=== PATIENT | male | born 1940 | race Caucasian/White ===

== ENCOUNTER 2016-03-21 12:39 | Emergency (ER) | payer MEDICARE, BC ==
[2016-03-21 12:56] VITALS: TEMP 96.6
--- NOTE | 2016-03-21 13:27 | ED.PDOC ---
History of Present Illness - General Chief Complaint: Cardiovascular Problem Stated Complaint: monitor for pacer/defib went off at home Time Seen by Provider: 03/21/16 13:06 Source: patient, RN notes reviewed, Vital Signs reviewed Exam Limitations: no limitations - History of Present Illness Initial Comments: Patient reports that when he got home from [employer] his defibrillator monitor was going off. HE was having no symptoms. 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 Patient continues to be asymptomatic. No chest pain, SOB, nausea or diaphoresis. He did have a mild dizzy spell yesterday but nothing today. Timing/Duration: 1/2 hour, resolved prior to arrival Severity: mild Location: other - No pain Activities at Onset: activity - at [employer] Prior Chest Pain/Cardiac Workup: heart attack - 1998 & 2008, stress test, other - CABG - 2008 and pacemaker/defib placement - 2 weeks ago Improving Factors: nothing Worsening Factors: nothing Nitro Today/Relief: no nitro taken today Aspirin Treatment Today: no aspirin today Associated Symptoms: denies symptoms Allergies/Adverse Reactions: Allergies NO KNOWN ALLERGY Allergy (Verified 01/03/15 15:46) Home Medications: Ambulatory Orders Aspirin [Aspirin Adult Low Dose] 81 mg PO DAILY 03/21/16 Furosemide 40 mg PO DAILY 03/21/16 Glipizide 10 mg PO DAILY 03/21/16 Losartan Potassium 100 mg PO DAILY 03/21/16 Metoprolol Tartrate 25 mg PO BID 03/21/16 Simvastatin 20 mg PO DAILY 03/21/16 Sitagliptin-Metformin HCl [Janumet] 1 tab PO BID 03/21/16 Spironolactone 25 mg PO BID 03/21/16 Review of Systems - Review of Systems Constitutional: States: no symptoms reported. Denies: diaphoresis, malaise, weakness EENTM: States: no symptoms reported Respiratory: States: no symptoms reported. Denies: cough, orthopnea, short of breath, stridor, wheezing Cardiology: States: no symptoms reported. Denies: chest pain, edema, palpitations, syncope Gastrointestinal/Abdominal: States: no symptoms reported. Denies: nausea Musculoskeletal: States: no symptoms reported Skin: States: no symptoms reported Neurological: States: see HPI. Denies: headache, numbness, paresthesia, seizure , tingling, tremors, weakness Endocrine: States: no symptoms reported Past Medical History (General) - Patient Medical History Hx Cardiac Disorders: Yes Hx Hypertension: Yes Hx Diabetes: Yes Hx Cancer: Yes - Bladder Surgical History: cholecystectomy, coronary bypass surgery, pacemaker - Vaccination History Hx Influenza Vaccination: No Hx Pneumococcal Vaccination: Yes - Social History Hx Tobacco Use: Yes - quit 40 years ago Hx Alcohol Use: Yes - occasional Hx Substance Use: No Hx Substance Use Treatment: No Hx Depression: No Family Medical History - Family History Mother Living Status: Hx Cardiac Disease: Yes Father Living Status: Hx Family;Other: COPD Physical Exam - Physical Exam General Appearance: Alert, Comfortable, No apparent distress, Well Developed, Well Groomed, Well Hydrated, Well Nourished Neck: non-tender, full range of motion, supple, normal inspection Respiratory: chest non-tender, lungs clear, normal breath sounds, no respiratory distress, no accessory muscle use Cardiovascular/Chest: regular rate, rhythm, no edema, no gallop, no JVD, no murmur Extremity: normal range of motion, non-tender, normal inspection Neurologic: no motor/sensory deficits, alert, normal mood/affect, oriented x 3 Skin Exam: normal color, warm/dry Progress - Results/Orders Results/Orders: Laboratory Tests 03/21/16 13:28 WBC 8.5 RBC 5.11 Hgb 14.9 Hct 44.3 MCV 86.5 MCH 29.1 MCHC 33.7 RDW 13.0 Plt Count 174 MPV 8.1 Absolute Neuts (auto) 6.50 Absolute Lymphs (auto) 1.10 Absolute Monos (auto) 0.70 Absolute Eos (auto) 0.20 Absolute Basos (auto) 0.00 Neutrophils % 76.5 Lymphocytes % 12.5 L Monocytes % 8.6 Eosinophils % 1.9 Basophils % 0.5 Sodium 136 Potassium 4.1 Chloride 103 Carbon Dioxide 25 Anion Gap 12.1 BUN 39 H Creatinine 2.12 H BUN/Creatinine Ratio 18.4 Random Glucose 274 H Serum Osmolality 291.1 Calcium 9.6 Total Bilirubin 1.0 AST 22 ALT 15 Alkaline Phosphatase 53 Creatine Kinase 93 CK-MB (CK-2) 3.5 CK-MB (CK-2) % Not Reportable Troponin I 0.04 Serum Total Protein 6.9 Albumin 4.2 Globulin 2.7 Albumin/Globulin Ratio 1.6 - EKG/XRAY/CT EKG: Jorje, Sinus, nonspecific ST T wave Chg Comments: 1st degree AV block XRAY: chest Xray Comments: Stable cardiomegaly, no acute changes per Radiology Departure - Departure Clinical Impression: Implantable defibrillator reprogramming/check Time of Disposition: 14:02 Disposition: Discharge to Home or Self Care Condition: Good Departure Forms: ED Discharge - Pt. Copy, Patient Portal Self Enrollment Instructions: DI for Automatic Cardioverter/Defibrillator Implantation Diet: resume usual diet Activity: increase activity as tolerated Home Medications: Ambulatory Orders Aspirin [Aspirin Adult Low Dose] 81 mg PO DAILY 03/21/16 Furosemide 40 mg PO DAILY 03/21/16 Glipizide 10 mg PO DAILY 03/21/16 Losartan Potassium 100 mg PO DAILY 03/21/16 Metoprolol Tartrate 25 mg PO BID 03/21/16 Simvastatin 20 mg PO DAILY 03/21/16 Sitagliptin-Metformin HCl [Janumet] 1 tab PO BID 03/21/16 Spironolactone 25 mg PO BID 03/21/16 Additional Instructions: Follow up with Ballast Regulator Operator as scheduled on , sooner if needed.
--- NOTE | 2016-03-21 13:56 | RAD ---
EXAM DESCRIPTION: XR CHEST 1 VIEW CLINICAL HISTORY: Irreg rhythm COMPARISON: February 05, 2009 FINDINGS: Again seen are postoperative changes in the mediastinum period a cardiac pacemaker is present, new from the prior exam. The heart is enlarged but stable. There is no airspace consolidation or pleural effusion. The bronchovascular markings are normal. There is no pneumothorax or acute fracture. IMPRESSION: Cardiac pacemaker, postoperative changes in the mediastinum and stable cardiomegaly, otherwise unremarkable exam Electronically signed by: Dallas Noel DO 03/21/2016 13:54
[2016-03-21 14:26] VITALS: BP 145/63; O2SAT 98
== END 2016-03-21 14:25 | disposition home or self-care (01) ==
LOC: ER 12:39
DX: Z45.02 Encounter for adjustment and management of automatic implantable cardiac defibrillator (principal); I25.2 Old myocardial infarction; Z95.1 Presence of aortocoronary bypass graft; I10 Essential (primary) hypertension; E11.9 Type 2 diabetes mellitus without complications; Z85.51 Personal history of malignant neoplasm of bladder; Z87.891 Personal history of nicotine dependence; Z79.82 Long term (current) use of aspirin; Z79.899 Other long term (current) drug therapy

== ENCOUNTER → 2016-04-15 | Outpatient (CLI) | payer MEDICARE, BC | END | disposition home or self-care (01) | LOC: GMAB 10:49 | PROVIDERS: ATTEND Family Medicine | DX: Z12.5 Encounter for screening for malignant neoplasm of prostate (principal); I10 Essential (primary) hypertension | CPT/HCPCS: 84443; G0103 ==

== ENCOUNTER → 2016-07-01 | Outpatient (CLI) | payer MEDICARE, BC | END | disposition home or self-care (01) | LOC: GMAB 17:20 | PROVIDERS: ATTEND Family Medicine | DX: L03.012 Cellulitis of left finger (principal) ==

== ENCOUNTER → 2016-11-04 | Outpatient (CLI) | payer MEDICARE, BC ==
--- NOTE | 2016-11-05 10:54 | CT ---
EXAM DESCRIPTION: Lumbar Spine CLINICAL HISTORY: 76 years, Male, LOW BACK PAIN COMPARISON: None TECHNIQUE: Lumbar CT with thin-section axial imaging with reconstructed MPR images reviewed as well. This exam was performed according to our departmental dose-optimization program, which includes automated exposure control, adjustment of the mA and/or kV according to patient size and/or use of iterative reconstruction technique. FINDINGS: CT of the lumbar spine demonstrates severe disc degenerative changes at L5-S1 with bone on bone appearance with vacuum phenomena with large anterior marginal osteophytes and smaller bony osteophytes and ridging at the posterior aspect of the disc space. There is mild vacuum phenomenon and disc space narrowing at L2-3 with normal alignment of the spine otherwise without significant posterior spurs noted. Soft tissue windows demonstrate a normal disc contour is in the lower thoracic spine and at the L1-2 level. Mild symmetric annular bulge with adequate canal at L2-3 is noted. Multifactoral L3-4 modest central stenosis with annular bulge and ligamentum flavum hypertrophy is present mild facet hypertrophy. At L4-5, mild multifactoral stenosis with symmetric annular bulge, facet degenerative arthropathy and ligamentum flavum hypertrophy is present. No significant stenosis is present at L5-S1 but posterior bony ridging is evident with modest facet hypertrophy. Moderate narrowing of each L5 neural foramen on a bony basis is evident. No vertebral collapse or destructive process is seen. The aorta is atherosclerotic without aneurysm. IMPRESSION: 1. Severe L5-S1 disc degenerative narrowing and bone on bone appearance with vacuum phenomena with large anterior and smaller posterior bony osteophytes evident without severe stenosis. 2. Multifactorial modest central canal stenosis at L3-4 and L4-5 secondary to broad-based annular bulge, ligamentum flavum hypertrophy, and facet arthropathy. The changes are symmetric. 3. Mild disc degeneration at L2-3 without significant compromise of the canal with normal appearance above this level. Electronically signed by: Bull Ryan MD 11/05/2016 10:52 AM CDT
== END | disposition home or self-care (01) ==
LOC: CT 13:53
PROVIDERS: ATTEND Family Medicine
DX: M54.5 Low back pain (principal)

== ENCOUNTER → 2016-11-30 | Outpatient (CLI) | payer MEDICARE, BC | END | disposition home or self-care (01) | LOC: GMAB 17:20 | PROVIDERS: ATTEND Family Medicine | DX: M54.16 Radiculopathy, lumbar region (principal); I50.40 Unspecified combined systolic (congestive) and diastolic (congestive) heart failure; E11.9 Type 2 diabetes mellitus without complications ==

== ENCOUNTER → 2016-12-08 | Outpatient (CLI) | payer MEDICARE, BC ==
--- NOTE | 2016-12-09 08:15 | CT ---
EXAM DESCRIPTION: Abdomen t/Pelvis w/o Contrast CLINICAL HISTORY: 76 years, 76 years, Male, Male, ABN WEIGHT LOSS, PERSONAL HX OF MALIGNANT NEOPLASM OF BLADDER COMPARISON: None. TECHNIQUE: CT of the abdomen and pelvis is performed according to our non contrast protocol This exam was performed according to our departmental dose-optimization program, which includes automated exposure control, adjustment of the mA and/or kV according to patient size and/or use of iterative reconstruction technique. FINDINGS: The lung bases are clear without effusions or infiltrates or masses. No free abdominal air is seen. The gallbladder is surgically absent without ductal dilation. The unenhanced liver is normal in appearance without focal mass. A small normal spleen without focal lesion is noted. The unenhanced pancreas and adrenal glands are normal. The unenhanced right kidney demonstrates no specific abnormality. A low-density approximate 12 mm lower pole left renal cortical nodule has attenuation values consistent with a benign cyst but is incompletely evaluated. If hematuria is present or there is concern for a possible renal mass consider renal sonography with attention to the lower pole left kidney. A probable parapelvic cyst in the mid left kidney is also noted. Aortic calcification without aneurysm is present. The bladder is normally distended and no distinct bladder mass on unenhanced imaging is evident. Mild prostatic hypertrophy consistent with the patient's age is noted. A fat-containing left inguinal hernia is noted. The anterior abdominal wall is otherwise unremarkable. A stool-filled colon is present with mild diverticulosis of the left colon without acute inflammation. No bowel obstruction or intra-abdominal mass seen. No right lower quadrant inflammatory changes or retroperitoneal or pelvic adenopathy is seen. No abdominal or pelvic ascites or fluid collections are noted. Bone on bone advanced degenerative disc disease at L5-S1 with vacuum phenomenon with milder changes at L2-3 are noted. No bony destructive changes are seen. A pattern of bony or abdominal metastatic disease is not apparent. IMPRESSION: 1. Probable left renal lower pole cortical cyst and mid pole parapelvic cyst or solid mass is thought unlikely. Correlation with renal sonography recommended. 2. Aortic and vascular calcification without aneurysm. 3. Surgical absence of the gallbladder and small fat-containing left inguinal hernia. 4. Left colonic diverticulosis. 5. Normally distended bladder without focal mass on noncontrast imaging. 6. Lower lumbar degenerative disc changes without evidence of bony metastatic disease. Electronically signed by: Bull Ryan MD 12/09/2016 8:14 AM CDT
== END ==
LOC: CT 09:30
PROVIDERS: ATTEND Family Medicine
DX: R63.4 Abnormal weight loss (principal); R63.0 Anorexia; K40.90 Unilateral inguinal hernia, without obstruction or gangrene, not specified as recurrent; Z85.51 Personal history of malignant neoplasm of bladder

== ENCOUNTER → 2016-12-13 | Outpatient (CLI) | payer MEDICARE, BC ==
--- NOTE | 2016-12-14 11:10 | US ---
EXAM DESCRIPTION: Renal CLINICAL HISTORY: CYST OF KIDNEY COMPARISON: CT abdomen pelvis December 08, 2016. TECHNIQUE: Sonographic images of the kidneys were acquired bilaterally and submitted for review. FINDINGS: Right kidney Size: Approximately 10.0 x 5.0 x 5.8 cm Echogenicity: Within normal limits for age. Parenchymal thickness and contour: Within normal limits. Pelvicalyceal dilatation: None Calculi: None Cysts: None Masses:None Left kidney Size: Approximately 10.5 x 5.6 x 5.1 cm Echogenicity: Within normal limits for age. Parenchymal thickness and contour: Within normal limits. Pelvicalyceal dilatation: None Calculi: None Cysts: Benign exophytic cyst off the inferior pole of the left kidney measuring up to 1.6 cm.. Intracortical cyst is also present measuring up to 1.9 cm. Masses:None Other findings IVC/aorta: Obscured by bowel gas. Urinary bladder: Not demonstrated. IMPRESSION: Benign cysts of the left kidney. Electronically signed by: Robert Hills MD 12/14/2016 11:09 AM BILLBOARD POSTER
== END ==
LOC: US 16:52
PROVIDERS: ATTEND Family Medicine
DX: N28.1 Cyst of kidney, acquired (principal)

== ENCOUNTER → 2017-05-05 | Outpatient (CLI) | payer MEDICARE, BC | LOC: GMAB 11:10 | PROVIDERS: ATTEND Family Medicine | DX: I10 Essential (primary) hypertension (principal); Z12.5 Encounter for screening for malignant neoplasm of prostate | CPT/HCPCS: 84443; G0103 ==

== ENCOUNTER 2017-07-14 02:23 | Emergency (ER) | payer MEDICARE, BC ==
[2017-07-14 02:43] VITALS: TEMP 97.5; O2SAT 96
[2017-07-14] MEDS ORDERED: predniSONE 20 MG TAB PO ONE (03:06)
[2017-07-14] MEDS ORDERED: SULFA/TRIMETH 800/160 (DS) TAB 1 EA TAB PO ONE (03:06)
[2017-07-14] MEDS ORDERED: CETIRIZINE HCL 10 MG TAB PO ONE (03:06)
--- NOTE | 2017-07-14 03:09 | ED.PDOC ---
History of Present Illness - General Chief Complaint: ENT Problem Stated Complaint: RIGHT SIDED THROAT SWELLING FACE Time Seen by Provider: 07/14/17 03:01 Source: patient Exam Limitations: no limitations - History of Present Illness Initial Comments: The patient is a 77-year-old male presenting to the emergency room secondary to right cheek and neck swelling along with some swelling to the central upper back after an insect bite or sting. He is uncertain what kind of insect. There is significant swelling and even mild hydropic change to the right jowl area. Mild itching. No shortness of breath. No wheezing. No evidence of any anaphylaxis. He has not had this reaction before. It does not appear to be an infectious cellulitis. Timing/Duration: 24 hours Severity: mild Improving Factors: nothing Worsening Factors: nothing Allergies/Adverse Reactions: Allergies NO KNOWN ALLERGY Allergy (Verified 07/14/17 02:38) Home Medications: Ambulatory Orders Clopidogrel Bisulfate [Plavix] 75 mg PO DAILY 07/14/17 Glipizide 10 mg PO 07/14/17 Metoprolol Succinate [Toprol Xl] 25 mg PO 07/14/17 Sacubitril-Valsartan [Entresto 49-51 mg] 07/14/17 Simvastatin 20 mg PO 07/14/17 Sitagliptin Phosphate [Januvia] 25 mg PO 07/14/17 Spironolactone [Aldactone] 25 mg PO 07/14/17 Sulfa/Trimeth 800/160 (Ds) Tab [Bactrim DS Tab] 1 ea PO DAILY #3 tab 07/14/17 predniSONE [Prednisone] 20 mg PO DAILY #3 tab 07/14/17 Review of Systems - Review of Systems Constitutional: States: no symptoms reported EENTM: States: no symptoms reported Respiratory: States: no symptoms reported Cardiology: States: no symptoms reported Gastrointestinal/Abdominal: States: no symptoms reported Genitourinary: States: no symptoms reported Musculoskeletal: States: no symptoms reported Skin: States: see HPI Neurological: States: no symptoms reported Endocrine: States: no symptoms reported All other Systems: No Change from Baseline Past Medical History (General) - Patient Medical History Hx Seizures: No Hx Stroke: No Hx Dementia: No Hx Asthma: No Hx of COPD: No Hx Cardiac Disorders: Yes Hx Congestive Heart Failure: No Hx Pacemaker: Yes Hx Hypertension: Yes Hx Thyroid Disease: No Hx Diabetes: Yes Hx Gastroesophageal Reflux: Yes Hx Renal Disease: No Hx Cancer: No Hx of HIV: No Hx Hepatitis C: No Hx MRSA: No Surgical History: angioplasty, cholecystectomy, coronary bypass surgery, pacemaker - Vaccination History Hx Tetanus, Diphtheria Vaccination: Yes Hx Influenza Vaccination: No Hx Pneumococcal Vaccination: No Immunizations Up to Date: No - Social History Hx Tobacco Use: No Hx Chewing Tobacco Use: No Hx Alcohol Use: No Hx Substance Use: No Hx Substance Use Treatment: No Hx Depression: No Feels Threatened In Home Enviroment: No Feels Threatened In a Relationship: No Hx Physical Abuse: No Hx Emotional Abuse: No Hx Suspected Abuse: No Family Medical History - Family History Mother Living Status: Hx Cardiac Disease: Yes Father Family History: No Known Living Status: Hx Family Asthma: No Hx Family;Other: COPD Physical Exam - Physical Exam General Appearance: Alert, Comfortable, No apparent distress Eye Exam: bilateral normal Ears, Nose, Throat: hearing grossly normal, normal ENT inspection Neck: non-tender, other - ild swelling in hydropic change to the right side of the neck just below the jawline. No evidence of abscess formation. Mild erythema. Minimal increased heat. 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 No evidence of anaphylaxis. The patient was given a dose of prednisone, Zyrtec and Bactrim. The patient will be placed on Bactrim daily for the next 3 days as well as low- dose prednisone for the next 3 days. He can take [id number] antihistamine such as Claritin or Zyrtec or Benadryl as needed. ER warnings were given. No definitive evidence of any infection at this time. - EKG/XRAY/CT CT Ordered: No CT Interpretation Call Back: No Departure - Departure Clinical Impression: Allergy, insect bite Disposition: Discharge to Home or Self Care Condition: Fair Departure Forms: ED Discharge - Pt. Copy, Patient Portal Self Enrollment Instructions: DI for General Allergic Reactions Diet: diabetic diet Activity: increase activity as tolerated Referrals: Salvador Haney MD [Primary Care Provider] - 1-2 Weeks Prescriptions: predniSONE [Prednisone] 20 mg PO DAILY #3 tab Sulfa/Trimeth 800/160 (Ds) Tab [Bactrim DS Tab] 1 ea PO DAILY #3 tab Home Medications: Ambulatory Orders Clopidogrel Bisulfate [Plavix] 75 mg PO DAILY 07/14/17 Glipizide 10 mg PO 07/14/17 Metoprolol Succinate [Toprol Xl] 25 mg PO 07/14/17 Sacubitril-Valsartan [Entresto 49-51 mg] 07/14/17 Simvastatin 20 mg PO 07/14/17 Sitagliptin Phosphate [Januvia] 25 mg PO 07/14/17 Spironolactone [Aldactone] 25 mg PO 07/14/17 Sulfa/Trimeth 800/160 (Ds) Tab [Bactrim DS Tab] 1 ea PO DAILY #3 tab 07/14/17 predniSONE [Prednisone] 20 mg PO DAILY #3 tab 07/14/17 Additional Instructions: the patient's a 77-year-old male presenting to the emergency room secondary to insect bite with localized allergic type reaction. No evidence of anaphylaxis. The patient was given a dose of prednisone, Zyrtec and Bactrim. The patient will be placed on Bactrim daily for the next 3 days as well as low- dose prednisone for the next 3 days. He can take [id number] antihistamine such as Claritin or Zyrtec or Benadryl as needed. ER warnings were given. No definitive evidence of any infection at this time.
[2017-07-14 03:30] VITALS: BP 145/77
== END 2017-07-14 03:36 | disposition home or self-care (01) ==
LOC: ER 02:23
DX: T63.481A Toxic effect of venom of other arthropod, accidental (unintentional), initial encounter (principal); I10 Essential (primary) hypertension; E11.9 Type 2 diabetes mellitus without complications; K21.9 Gastro-esophageal reflux disease without esophagitis; Z95.0 Presence of cardiac pacemaker; Z95.1 Presence of aortocoronary bypass graft; Z79.02 Long term (current) use of antithrombotics/antiplatelets

== ENCOUNTER → 2017-08-04 | Outpatient (CLI) | payer MEDICARE, BC ==
--- NOTE | 2017-08-04 17:13 | US ---
EXAM DESCRIPTION: Breast,Bilateral: Ultrasound CLINICAL HISTORY: 77 yearsMaleLUMP. About one month duration. "Dr. Haney stopped my medicine." COMPARISON: Digital 3-D tomosynthesis diagnostic bilateral mammography on this visit. TECHNIQUE: Transcutaneous scanning of the bilateral breasts utilizing humphries-scale and Doppler modes. Scanning performed by the instructor ground services and Dr. Burt. FINDINGS: Irregular hypoechoic tissue in the retroareolar left breast with no consistent posterior acoustic features. Not seen in the retroareolar right breast. No parenchymal edema or large calcifications. No distinct solid mass or cyst. No overlying skin changes. Consistent with gynecomastia. IMPRESSION: BI-RADS CATEGORY: 2 - BENIGN FINDINGS. FOLLOW UP: digital diagnostic breast imaging, based upon clinical findings. The FINDINGS and the FOLLOW-UP plan were reviewed in person with the patient after the examination. Written communication explaining the IMPRESSION and FOLLOW-UP will be mailed to the patient and referring care provider. Electronically signed by: Yohan Burt MD 08/04/2017 5:11 PM CDT
--- NOTE | 2017-08-05 16:23 | MAM ---
EXAM DESCRIPTION: Diagnostic Mammo,Bilateral: Digital Mammography CLINICAL HISTORY: 77 yearsMaleLUMP noticed one month ago. Minimally tender. Size of a dime. No nipple discharge. stopped medication after lump was discovered.. COMPARISON: No prior mammograms.. Targeted bilateral breast ultrasound following this examination. TECHNIQUE: Bilateral CC LM MLO projection full-field images, 3-D tomosynthesis digital mammographic technique. CAD not utilized. FINDINGS: The breast parenchymal density pattern is: Scattered areas of fibroglandular density. No skin thickening or nipple retraction multiple bilateral skin calcifications. Electronic monitor partially obscures the pectoral muscle above the left breast. Minimal thickening of the tissues around the left nipple. No nipple retraction. Bilateral axillary lymph nodes. Ultrasound: Irregular hypoechoic tissue in the retroareolar left breast with no consistent posterior acoustic features. Not seen in the retroareolar right breast. No parenchymal edema or large calcifications. No distinct solid mass or cyst. No overlying skin changes. Consistent with gynecomastia. IMPRESSION: BI-RADS CATEGORY: 2 - BENIGN FINDINGS. FOLLOW UP: digital diagnostic breast imaging when indicated by clinical findings. Please refer to bilateral targeted breast ultrasound and reports on this visit. The FINDINGS and the FOLLOW-UP plan were reviewed in person with the patient after the examination. Written communication explaining the IMPRESSION and FOLLOW-UP will be mailed to the patient and referring care provider. Electronically signed by: Yohan Burt MD 08/05/2017 4:22 PM CDT
== END ==
LOC: GMAB 13:00
PROVIDERS: ATTEND Family Medicine
DX: N63.42 Unspecified lump in left breast, subareolar (principal); R22.9 Localized swelling, mass and lump, unspecified

== ENCOUNTER → 2018-01-17 | Outpatient (CLI) | payer MEDICARE, BC ==
--- NOTE | 2018-01-17 14:42 | US ---
EXAM DESCRIPTION: Breast,Left: Ultrasound CLINICAL HISTORY: 77 [id number] tenderness in retroareolar left breast. More tender 2 weeks ago. About the same as 6 months ago. Enlarging on clinical history. COMPARISON: Bilateral breast ultrasound 08/04/2017. Bilateral digital diagnostic mammography 08/04/2017. TECHNIQUE: Transcutaneous scanning of the left breast utilizing humphries-scale and Doppler modes. Scanning performed by the lab assistant and Dr. Burt. FINDINGS: Irregular hypoechoic tissue in the retroareolar left breast with no real circumscribed margins and approximate dimensions 2.5 x 3.3 cm. Approximately 2.7 x 2.4 cm on the prior study. Wider than tall. No calcifications or fluid. Posterior acoustic shadowing features. Typical hypoechoic retroareolar tissues in the right breast not as prominent. IMPRESSION: BI-RADS CATEGORY 4: SUSPICIOUS. SUB-CATEGORY 4A - LOW SUSPICION FOR MALIGNANCY. Surgical consultation and tissue diagnosis should be considered. Consider digital diagnostic mammography if this will contribute to surgical consultation. The FINDINGS and FOLLOW-UP plan were reviewed in person with the patient following the examination. Written communication explaining the IMPRESSION and FOLLOW-UP will be mailed to the patient and referring care provider. Electronically signed by: Yohan Burt MD 01/17/2018 2:40 PM PATTERN GATER
== END ==
LOC: US 10:32
PROVIDERS: ATTEND Surgery
DX: N63.42 Unspecified lump in left breast, subareolar (principal)

== ENCOUNTER → 2018-01-26 | Outpatient (CLI) | payer MEDICARE, BC ==
--- NOTE | 2018-01-26 09:52 | OP ---
DATE OF PROCEDURE: 01/26/18 PREOPERATIVE DIAGNOSIS: 1. Subareolar left breast mass, increasing in size. POSTOPERATIVE DIAGNOSIS: 1. Subareolar left breast mass, increasing in size, pending pathology report. PROCEDURE: 1. Sonographically guided needle core biopsy, left breast subareolar mass. SURGEON: Adam Mittal MD. POST CLOSING SPECIALIST: None. ANESTHESIA: Local infiltration of 1% lidocaine. INDICATION: The patient is a 77-year-old male with a mildly tender mass in his left breast. It has been followed with serial ultrasounds and has been noted to increase in size. He was brought to the Ultrasound Suite today for sonographically guided needle core biopsy under local anesthesia. FINDINGS: Four good cores were taken with the needle identified within the mass. PROCEDURE: The patient was placed in the supine position. The left breast was inspected using the ultrasound device and the lesion was identified. The breast lateral to the ultrasound probe was prepped with Betadine and draped with towels. Local infiltration of anesthesia was obtained with 1% lidocaine. A stab wound was made with a 15 blade and the needle needle was introduced under ultrasound guidance to the mass and the four cores were taken. Hemostasis was obtained with pressure. A single suture was placed in the skin of 4-0 Prolene. Sterile pressure dressing was applied. The patient tolerated the procedure well. Estimated blood loss was nil. #[id number]
--- NOTE | 2018-01-26 14:41 | US ---
EXAM DESCRIPTION: Biopsy/Needle Guidance: Ultrasound. CLINICAL HISTORY: 77 years Male BREAST MASS COMPARISON: Diagnostic ultrasound of the left breast on 01/17/2018. Bilateral breast ultrasound 08/04/2017. TECHNIQUE: The procedure was performed by Dr. Mittal. Repeat ultrasound localized abnormal tissue at the retroareolar position of the left breast less than 2 cm from the nipple.. Sterile preparation. Sterile ultrasound guidance during needle passes. FINDINGS: Preliminary images show subareolar irregular hypoechoic tissue. Images during the procedure demonstrate the echogenic core biopsy needle transversing the lesion. IMPRESSION: Successful, ultrasound-guided core biopsy of left retroareolar mass/tissue. Adequate core samples were obtained. Pathology examination at remote facility, results pending. Electronically signed by: Yohan Burt MD 01/26/2018 2:40 PM [address] OF [address]
== END ==
LOC: US 09:00
PROVIDERS: ATTEND Surgery
DX: N63.42 Unspecified lump in left breast, subareolar (principal)

== ENCOUNTER → 2018-07-25 | Outpatient (CLI) | payer MEDICARE, BC ==
--- NOTE | 2018-07-26 10:17 | US ---
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 TECHNIQUE: Carotid Doppler ultrasound FINDINGS: Right Submitted images show no significant stenosis in the common carotid, internal carotid or external carotid arteries. Mild calcified plaque at the right carotid bifurcation. More prominent soft plaque is seen in the upper right CCA narrowing the upper CCA lumen to 3 mm diameter. A transverse image through the CCA and this area shows 63% luminal area narrowing by noncalcified plaque. The following flow velocities were obtained: Common carotid artery peak systolic flow velocity measures 114 centimeters per second. Internal carotid artery peak systolic flow velocity measures 45-62 centimeters per second. External carotid artery peak systolic flow velocity measures 67 centimeters per second. Flow in the right vertebral artery is antegrade. The right internal carotid to common carotid peak systolic flow velocity ratio equals 0.5 which is normal. Left Submitted images show normal caliber of the left common carotid, internal carotid and external carotid arteries with no significant stenosis. Calcified plaque at the left carotid bifurcation. Transverse image shows 21% area stenosis of the proximal left ICA. The following flow velocities were obtained: Common carotid artery peak systolic flow velocity measures 66 centimeters per second. Internal carotid artery peak systolic flow velocity measures 34-46 centimeters per second. External carotid artery peak systolic flow velocity measures 55 centimeters per second. Flow in the left vertebral artery is antegrade. The left internal carotid to common carotid peak systolic flow velocity ratio of 0.7 is normal. IMPRESSION: No significantly elevated flow velocities to indicate hemodynamically significant stenosis. Electronically signed by: Johny Leiva MD 07/26/2018 10:15 AM CDT
== END ==
LOC: RAD 11:52
PROVIDERS: ATTEND Family Medicine
DX: I65.23 Occlusion and stenosis of bilateral carotid arteries (principal)

== ENCOUNTER → 2019-03-21 | Outpatient (CLI) | payer MEDICARE, BC ==
--- NOTE | 2019-03-21 15:35 | RAD ---
Procedure: XR CHEST 2 VIEWS Exam Date: 03/21/2019 Ordering Provider: Salvador Haney Clinical Indication: FEVER WITH CHILLS Comparison: 03/21/2016 Findings: Residuals of thoracic surgery. Left subclavian AICD with lead stable in position. Borderline cardiomegaly. Aortic calcification. Opacities in the left upper lobe and left midlung suspicious for pneumonia. Right lung is clear. No pleural effusion. No pneumothorax. No acute osseous abnormality. Impression: 1. Opacities in the left upper lobe and left midlung suspicious for pneumonia. Follow-up on completion of a course of adequate medical therapy is recommended to document resolution. Electronically signed by: Az Cuevas MD 03/21/2019 3:34 PM [facility]
== END ==
LOC: LAB.O 14:47
PROVIDERS: ATTEND Family Medicine
DX: R91.8 Other nonspecific abnormal finding of lung field (principal); R50.9 Fever, unspecified; D50.9 Iron deficiency anemia, unspecified; R35.1 Nocturia; R19.7 Diarrhea, unspecified

== ENCOUNTER 2019-03-23 16:11 | Emergency (ER) | payer MEDICARE, BC ==
--- NOTE | 2019-03-23 16:55 | RAD ---
EXAM DESCRIPTION: Chest,2 Views CLINICAL HISTORY: 78 years Male recent william pna, cont symptoms COMPARISON: March 21, 2019. TECHNIQUE: Two view study of the chest was performed. FINDINGS: Cardiac silhouette is mildly enlarged. Central vessels are indistinct. Pacemaker leads identified. Sternal wires. Electrodes lateral left hemithorax. No infiltrate or effusion on right. Opacity medial left upper lobe not significantly changed. Opacity in region of left heart border unchanged. Small left pleural effusion versus pleural reaction. No pneumothorax. IMPRESSION: Enlarged heart with mild central congestion. Infiltrate and atelectatic change medial left apex as well as left lung base not significantly changed. Follow-up to resolution would be needed to exclude underlying lung parenchymal lesion. Electronically signed by: Nadia Hahn MD 03/23/2019 4:54 PM CLINICAL STATISTICAL PROGRAMMER
[2019-03-23 17:56] VITALS: TEMP 99
[2019-03-23] MEDS ORDERED: SODIUM CHLORIDE 0.9% 500ML 500 ML ONE (18:03)
[2019-03-23] MEDS: SODIUM CHLORIDE 0.9% 1000ML 500 ML IVS ONE (18:05)
--- NOTE | 2019-03-23 18:05 | ED.PDOC ---
History of Present Illness - General Chief Complaint: Respiratory Problem Stated Complaint: cough Time Seen by Provider: 03/23/19 16:26 Source: patient, family Exam Limitations: no limitations - History of Present Illness Initial Comments: The patient is a 78-year-old male presents emergency room secondary to persistence of symptoms from a left upper lobe pneumonia. He was seen in clinic [address] Haney and had blood work as well as a chest x-ray done at that time. He was appropriately started on Omnicef and a Z-Lj after receiving a dose of Rocephin. Patient is not feeling worse but he is not feeling better. He contacted Dr. Haney who sent him up here for further evaluation. The patient does not appear in any distress. He ambulates into the bed without difficulty. No hypoxia. No increased work of breathing. No current fever. He reports that he did have diarrhea but it stopped a day ago after a dose of Imodium. No chest pain. No palpitations. No syncope or near syncope. His symptoms are mainly a fever at night, cough and this feeling of mild shortness of breath. Timing/Duration: other - 4 days Severity: moderate Improving Factors: nothing Worsening Factors: nothing Associated Symptoms: cough, fever/chills, malaise, shortness of breath Allergies/Adverse Reactions: Allergies NO KNOWN ALLERGY Allergy (Verified 07/14/17 02:38) Home Medications: Ambulatory Orders Glipizide 10 mg PO DAILY 07/14/17 Metoprolol Succinate [Toprol Xl] 25 mg PO BID 07/14/17 Sacubitril-Valsartan [Entresto 49-51 mg] 1 tablet PO BID 07/14/17 Simvastatin 20 mg PO DAILY 07/14/17 Spironolactone [Aldactone] 12.5 mg PO DAILY 07/14/17 Apixaban [Eliquis] 5 mg PO DAILY 03/23/19 Insulin Degludec [Tresiba Flextouch] 14 units SUBCU DAILY 03/23/19 Sitagliptin Phosphate [Januvia] 100 mg PO DAILY 03/23/19 Review of Systems - Review of Systems Constitutional: States: fever, malaise EENTM: States: nose congestion Respiratory: States: cough, short of breath Cardiology: States: no symptoms reported Gastrointestinal/Abdominal: States: no symptoms reported Genitourinary: States: no symptoms reported Musculoskeletal: States: no symptoms reported Skin: States: no symptoms reported Neurological: States: no symptoms reported Endocrine: States: no symptoms reported All other Systems: No Change from Baseline Past Medical History (General) - Patient Medical History Hx Seizures: No Hx Stroke: Yes Hx Dementia: No Hx Asthma: No Hx of COPD: No Hx Cardiac Disorders: Yes Hx Congestive Heart Failure: No Hx Pacemaker: Yes Hx Hypertension: Yes Hx Thyroid Disease: No Hx Diabetes: Yes Hx Gastroesophageal Reflux: Yes Hx Renal Disease: No Hx Cancer: Yes Hx of HIV: No Hx Hepatitis C: No Hx MRSA: No Surgical History: cholecystectomy, coronary bypass surgery - Vaccination History Hx Tetanus, Diphtheria Vaccination: Yes Hx Influenza Vaccination: No Hx Pneumococcal Vaccination: Yes - Social History Hx Tobacco Use: Yes Hx Chewing Tobacco Use: No Hx Alcohol Use: No Hx Substance Use: No Hx Substance Use Treatment: No Hx Depression: No Hx Physical Abuse: No Hx Emotional Abuse: No Hx Suspected Abuse: No Family Medical History - Family History Mother Living Status: Hx Cardiac Disease: Yes Father Family History: No Known Living Status: Hx Family Asthma: No Hx Family;Other: COPD Physical Exam - Physical Exam General Appearance: Alert, Comfortable, No apparent distress Eye Exam: bilateral normal Ears, Nose, Throat: hearing grossly normal, normal pharynx, nasal congestion Neck: full range of motion, supple Respiratory: no respiratory distress, no accessory muscle use, rales - Mild primarily to the left upper lung field. Cardiovascular/Chest: normal peripheral pulses, regular rate, rhythm, no edema Peripheral Pulses: radial,right: 2+, radial,left: 2+ Gastrointestinal/Abdominal: non tender, soft Rectal Exam: deferred Extremity: normal range of motion, non-tender, no pedal edema, no calf tenderness, normal capillary refill Neurologic: access lead II-XII nml as tested, alert, normal mood/affect, oriented x 3 Skin Exam: normal color Comments: Vital Signs - 24 hr 03/23/19 03/23/19 03/23/19 16:15 17:00 17:30 Temperature 98.4 F 99.0 F Pulse Rate [ 87 85 61 left brachial] Respiratory 20 20 20 Rate Blood Pressure 140/80 128/77 133/83 [left brachial] O2 Sat by Pulse 97 96 98 Oximetry 03/23/19 16:27 EKG Assessment ONCE 03/23/19 16:30 EKG STAT 03/23/19 17:01 BLOOD CULTURE Stat 03/23/19 17:17 SPUTUM CULTURE Stat 03/23/19 18:02 Sodium Chloride 0.9% 1000ML [Ns 1000 ml] 500 ml IVS ONCE Laboratory Results - last 24 hr 03/23/19 03/23/19 03/23/19 17:01 17:01 17:01 WBC 8.2 RBC 4.79 Hgb 14.5 Hct 42.3 MCV 88.2 MCH 30.1 MCHC 34.2 RDW 13.2 Plt Count 191 MPV 8.3 Absolute Neuts (auto) 6.80 Absolute Lymphs (auto) 0.30 L Absolute Monos (auto) 0.70 Absolute Eos (auto) 0.40 Absolute Basos (auto) 0.00 Neutrophils % 82.5 H Lymphocytes % 4.2 L Monocytes % 8.5 Eosinophils % 4.5 Basophils % 0.3 Sodium 130 L Potassium 3.7 Chloride 97 L Carbon Dioxide 22 Anion Gap 14.7 BUN 45 H Creatinine 2.10 H BUN/Creatinine Ratio 21.4 H Random Glucose 235 H D Serum Osmolality 279.9 Lactic Acid 1.6 Calcium 8.1 L Total Bilirubin 1.1 H D AST 14 ALT 13 Alkaline Phosphatase 55 Creatine Kinase 60 CK-MB (CK-2) 3.2 CK-MB (CK-2) % Not Reportable Troponin I 0.02 B-Natriuretic Peptide 400.0 H* Serum Total Protein 6.3 L Albumin 3.1 L Globulin 3.2 Albumin/Globulin Ratio 1.0 L Urine Color Urine Appearance Urine pH Ur Specific [place] Urine Protein Urine Glucose (UA) Urine Ketones Urine Blood Urine Nitrite Urine Bilirubin Urine Urobilinogen Ur Leukocyte Esterase Urine RBC Urine WBC Ur Epithelial Cells Amorphous Sediment Urine Bacteria 03/23/19 17:28 WBC RBC Hgb Hct MCV MCH MCHC RDW Plt Count MPV Absolute Neuts (auto) Absolute Lymphs (auto) Absolute Monos (auto) Absolute Eos (auto) Absolute Basos (auto) Neutrophils % Lymphocytes % Monocytes % Eosinophils % Basophils % Sodium Potassium Chloride Carbon Dioxide Anion Gap BUN Creatinine BUN/Creatinine Ratio Random Glucose Serum Osmolality Lactic Acid Calcium Total Bilirubin AST ALT Alkaline Phosphatase Creatine Kinase CK-MB (CK-2) CK-MB (CK-2) % Troponin I B-Natriuretic Peptide Serum Total Protein Albumin Globulin Albumin/Globulin Ratio Urine Color Yellow Urine Appearance Clear Urine pH 5.5 Ur Specific [place] 1.020 Urine Protein 30 Urine Glucose (UA) Negative Urine Ketones Negative Urine Blood Trace-lysed H Urine Nitrite Negative Urine Bilirubin Negative Urine Urobilinogen 0.2 Ur Leukocyte Esterase Negative Urine RBC 0 Urine WBC 1-3 Ur Epithelial Cells 0 Amorphous Sediment Trace Urine Bacteria Rare Chest x-ray shows what appears to be a stable left upper lobe infiltrate with a small pericardial infiltrate on the left. EKG shows what I believe is atrial fibrillation that is well rate controlled at 84 bpm. There is a RSR prime and anterior lateral leads. No definitive ST segment or T wave changes indicative of acute ischemia when compared to previous EKGs. There is obvious conduction delay. Progress - Progress Progress: 03/23/19 18:09 The patient is a 78-year-old male presenting with a left upper lobe pneumonia that was found 2 days ago. X-ray, blood work and clinical appearance seem to indicate that the antibiotics are doing what they should be doing. He is not hypoxic and vital signs are stable. White blood cell count has actually improved from 11,000 down to 8000 which is approximately his baseline. No evidence of any respiratory distress or sepsis. The patient will continue his home azithromycin and Omnicef. He can continue to take Tylenol at night for fever control as needed. We did perform a blood and sputum culture here tonight. I do want him to follow back up with Dr. Haney on Tuesday for repeat evaluation. Obviously if the patient is worsening in any significant way in the near future then he needs to return here for further evaluation and possible inpatient management if necessary. At this point in time however there is nothing I can offer him from the inpatient standpoint that would improve his care. He did receive a small 500 cc bolus of normal saline for what is likely mild dehydration related to the diarrhea from a few days ago. This will also help with the mild hyponatremia. He is no longer having diarrhea at this time. He needs to maintain a bland diet. He needs to do deep breathing exercises and make himself cough. Additionally he does need to get up and move around to prevent deconditioning. ER warnings are given for any worsening. [email or web address] [email or web address] Departure - Departure Clinical Impression: Hyponatremia, Dehydration, mild Pneumonia Qualifiers: Pneumonia type: due to unspecified organism Laterality: right Lung location: upper lobe of lung Qualified Code(s): J18.9 - Pneumonia, unspecified organism Disposition: Discharge to Home or Self Care Condition: Fair Departure Forms: ED Discharge - Pt. Copy, Patient Portal Self Enrollment Instructions: DI for Pneumonia -- Adult Diet: diabetic diet Activity: increase activity as tolerated Referrals: KANCHAN SANDERSON MD [Primary Care Provider] - 1-5 Days Home Medications: Ambulatory Orders Glipizide 10 mg PO DAILY 07/14/17 Metoprolol Succinate [Toprol Xl] 25 mg PO BID 07/14/17 Sacubitril-Valsartan [Entresto 49-51 mg] 1 tablet PO BID 07/14/17 Simvastatin 20 mg PO DAILY 07/14/17 Spironolactone [Aldactone] 12.5 mg PO DAILY 07/14/17 Apixaban [Eliquis] 5 mg PO DAILY 03/23/19 Insulin Degludec [Tresiba Flextouch] 14 units SUBCU DAILY 03/23/19 Sitagliptin Phosphate [Januvia] 100 mg PO DAILY 03/23/19 Additional Instructions: The patient is a 78-year-old male presenting with a left upper lobe pneumonia that was found 2 days ago. X-ray, blood work and clinical appearance seem to indicate that the antibiotics are doing what they should be doing. He is not hypoxic and vital signs are stable. White blood cell count has actually improved from 11,000 down to 8000 which is approximately his baseline. No evidence of any respiratory distress or sepsis. The patient will continue his home azithromycin and Omnicef. He can continue to take Tylenol at night for fever control as needed. We did perform a blood and sputum culture here tonight. I do want him to follow back up with Dr. Haney on Tuesday for repeat evaluation. Obviously if the patient is worsening in any significant way in the near future then he needs to return here for further evaluation and possible inpatient management if necessary. At this point in time however there is nothing I can offer him from the inpatient standpoint that would improve his care. He did receive a small 500 cc bolus of normal saline for what is likely mild dehydration related to the diarrhea from a few days ago. This will also help with the mild hyponatremia. He is no longer having diarrhea at this time. He needs to maintain a bland diet. He needs to do deep breathing exercises and make himself cough. Additionally he does need to get up and move around to prevent deconditioning. ER warnings are given for any worsening.
[2019-03-23] MEDS: ACETAMINOPHEN 325 MG TAB PO ONE (18:06)
[2019-03-23 19:08] VITALS: BP 131/79; O2SAT 97
== END 2019-03-23 18:55 | disposition home or self-care (01) ==
LOC: ER 16:11
DX: J18.9 Pneumonia, unspecified organism (principal); E86.0 Dehydration; E87.1 Hypo-osmolality and hyponatremia; I51.9 Heart disease, unspecified; I10 Essential (primary) hypertension; E11.9 Type 2 diabetes mellitus without complications; K21.9 Gastro-esophageal reflux disease without esophagitis; Z85.9 Personal history of malignant neoplasm, unspecified; Z95.0 Presence of cardiac pacemaker; Z86.73 Personal history of transient ischemic attack (TIA), and cerebral infarction without residual deficits; Z79.01 Long term (current) use of anticoagulants; Z79.899 Other long term (current) drug therapy; Z95.1 Presence of aortocoronary bypass graft; Z87.891 Personal history of nicotine dependence
CPT/HCPCS: 36415; 71046; 80053; 81001; 82550; 82553; 83605; 83880; 84484; 85025; 87040; 87502; 93005; J7040

== ENCOUNTER → 2019-03-26 | Outpatient (CLI) | payer MEDICARE, BC ==
--- NOTE | 2019-03-27 19:27 | US ---
EXAM DESCRIPTION: Carotid Duplex: ULTRASOUND. CLINICAL HISTORY: 78 years Male HISTORY OF TIA COMPARISON: Comparison same study July 2018. TECHNIQUE: Transcutaneous scanning utilizing humphries-scale and Doppler modes to evaluate the bilateral carotid systems and vertebral arteries. Percentage of diameter of stenosis or no stenosis recorded will be based upon NASCET criteria. FINDINGS: Peak systolic/end diastolic (CM-Sec) CCA : Right proximal 42/9 distal 219/27 Left proximal 70/10. Distal 88/13. ICA: Right proximal 45/16, mid 41/11. Left proximal 57/16, Distal 46/16. Vertebral Right 31/11 Left 39/13. ECA (PS Only) Right 63 left 58. ICA/CCA peak systolic ratio: Right 1.1 Left 0.6 ICA/CCA end diastolic ratio: Right 1.7 Left 1.2 Vertebral arteries: antegrade flow. Comments Comments: Atherosclerotic calcifications bilateral common carotid bifurcations and proximal ICAs. Color turbulent flow distal right CCA bulb. Spectral broadening in the right mid and distal ICAs. 71% area stenosis and 72% diameter stenosis right mid CCA. Spectral broadening in the distal left ICA. Area diameter stenosis in the left CCA and left ICA 25% or less. IMPRESSION: 1. Doppler and grayscale ultrasound evaluation of the bilateral carotid systems and vertebral arteries shows 71% area stenosis and 72% diameter stenosis in the right mid CCA. Consider carotid-vertebral CTA or MRA, or conventional contrast angiography correlation and neurovascular consultation. 2. Significant amount of plaque seen in the carotid arteries bilaterally. Bilateral vertebral arteries showed antegrade-cephalad flow. Electronically signed by: Yohan Burt MD 03/27/2019 7:26 PM ELECTRO MECHANICAL TECHNOLOGIST
== END ==
LOC: US 11:42
PROVIDERS: ATTEND Family Medicine
DX: Z86.73 Personal history of transient ischemic attack (TIA), and cerebral infarction without residual deficits (principal); I65.23 Occlusion and stenosis of bilateral carotid arteries

== ENCOUNTER → 2019-07-17 | Outpatient (CLI) | payer MEDICARE, BC | LOC: GMAE 11:15 | PROVIDERS: ATTEND Family Medicine | DX: I10 Essential (primary) hypertension (principal); E11.9 Type 2 diabetes mellitus without complications; E78.2 Mixed hyperlipidemia ==

== ENCOUNTER 2019-11-04 13:06 | Emergency (ER) | payer MEDICARE, BC ==
--- NOTE | 2019-11-04 13:32 | ED.PDOC ---
History of Present Illness - General Chief Complaint: Skin/Abrasion/Tear Time Seen by Provider: 11/04/19 13:07 Source: patient, RN notes reviewed, Vital Signs reviewed Exam Limitations: no limitations - History of Present Illness Initial Comments: Pleasant 79 yo male with CKD, DM, CAD comes in with two days of toe redness and swelling. denies any pain or injury. just notice it getting more red so came in for evaluation. no fever. Does have some degree of peripheral neuropathy. no hx of gout. no abrasion, does not itch. Allergies/Adverse Reactions: Allergies NO KNOWN ALLERGY Allergy (Verified 07/14/17 02:38) Home Medications: Ambulatory Orders Glipizide 10 mg PO DAILY 07/14/17 Metoprolol Succinate [Toprol Xl] 25 mg PO BID 07/14/17 Sacubitril-Valsartan [Entresto 49-51 mg] 1 tablet PO BID 07/14/17 Simvastatin 20 mg PO DAILY 07/14/17 Spironolactone [Aldactone] 12.5 mg PO DAILY 07/14/17 Apixaban [Eliquis] 5 mg PO DAILY 03/23/19 Insulin Degludec [Tresiba Flextouch] 14 units SUBCU DAILY 03/23/19 Sitagliptin Phosphate [Januvia] 100 mg PO DAILY 03/23/19 Review of Systems - Review of Systems Constitutional: Denies: chills, fever, malaise EENTM: Denies: eye pain, blurred vision, throat swelling, mouth pain Respiratory: Denies: cough, short of breath, stridor Cardiology: Denies: chest pain, palpitations Gastrointestinal/Abdominal: Denies: abdominal pain, nausea, vomiting Genitourinary: Denies: discharge, hematuria, pain Musculoskeletal: States: joint swelling. Denies: gout, joint pain, muscle pain, muscle stiffness, neck pain Skin: States: see HPI, change in color Neurological: States: numbness - chronic has peripheral neuropathy. Denies: tremors, weakness Endocrine: Denies: increased hunger, increased thirst, increased urine, unexplained weight gain, unexplained weight loss Hematologic/Lymphatic: Denies: blood clots, easy bleeding, easy bruising Past Medical History (General) - Patient Medical History Hx Seizures: No Hx Stroke: Yes Hx Dementia: No Hx Asthma: No Hx of COPD: No Hx Cardiac Disorders: Yes Hx Congestive Heart Failure: No Hx Pacemaker: Yes Hx Hypertension: Yes Hx Thyroid Disease: No Hx Diabetes: Yes Hx Gastroesophageal Reflux: Yes Hx Renal Disease: No Hx Cancer: Yes Hx of HIV: No Hx Hepatitis C: No Hx MRSA: No - Vaccination History Hx Tetanus, Diphtheria Vaccination: Yes Hx Influenza Vaccination: No Hx Pneumococcal Vaccination: Yes - Social History Hx Tobacco Use: Yes Hx Chewing Tobacco Use: No Hx Alcohol Use: No Hx Substance Use: No Hx Substance Use Treatment: No Hx Depression: No Hx Physical Abuse: No Hx Emotional Abuse: No Hx Suspected Abuse: No Family Medical History - Family History Mother Living Status: Hx Cardiac Disease: Yes Father Family History: No Known Living Status: Hx Family Asthma: No Hx Family;Other: COPD Physical Exam - Physical Exam General Appearance: Alert, Comfortable, No apparent distress Eyes, Ears, Nose, Throat Exam: normal ENT inspection Neck: non-tender, full range of motion, supple, normal inspection Cardiovascular/Chest: normal peripheral pulses, regular rate, rhythm, no edema, no gallop, no JVD Respiratory: chest non-tender, lungs clear, normal breath sounds, no respiratory distress, no accessory muscle use Gastrointestinal/Abdominal: normal bowel sounds, non tender, soft, no organomegaly, no pulsatile mass Back Exam: normal inspection, no CVA tenderness Extremity: normal range of motion, non-tender, normal inspection, no pedal edema, no calf tenderness, normal capillary refill 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 normal motor function. dorsalis 1+ aubree sym good cap refill Skin Exam: warm/dry, other - left first toe weith erythema, swelling, not ttp. Skin Character: erythema Progress - Progress Progress: 11/04/19 13:51 partial ddx considered: cellulitis, gout, septic arthritis, osteomyelitis, trauma. due to normal esr and normal wbc/crp infection not likely. Most likely gouty attack; however, due to ckd cannot give nsaids and due to hyperglycemia cannot give steroids. Patient is currently not in pain so no pain control needed at this time. Will need to discuss with pcp once acute attack over about allopurinol. The data reviewed when caring for this patient included: nurse notes, prior records, etc. The history and assessments from nurses notes were reviewed and considered, and the patient's home medication list was also reviewed and considered. My assessment and the results of testing completed here in the ED were discussed with the patient/family. All questions were answered, and they express understanding of my assessment and the plan. They have been instructed to return if their symptoms worsen, and have been asked to follow up with their primary care physician to recheck today's presenting complaint. Krista Hussein DO #[id number] - Results/Orders Results/Orders: 11/04/19 15:01 Discharge Stat Laboratory Results WBC 8.0 K/mm3 (4.8-10.8) 11/04/19 13:46 RBC 5.18 M/mm3 (4.70-6.10) 11/04/19 13:46 Hgb 16.1 gm/dL (14.0-18.0) 11/04/19 13:46 Hct 45.2 % (42.0-52.0) 11/04/19 13:46 MCV 87.2 fl (80.0-94.0) 11/04/19 13:46 MCH 31.2 pg (27.0-31.0) H 11/04/19 13:46 MCHC 35.7 g/dL (33.0-37.0) 11/04/19 13:46 RDW 14.1 % (11.5-14.5) 11/04/19 13:46 Plt Count 215 K/mm3 (130-400) 11/04/19 13:46 MPV 8.2 fl (7.40-10.4) 11/04/19 13:46 Absolute Neuts (auto) 6.10 K/uL (1.8-6.8) 11/04/19 13:46 Absolute Lymphs (auto) 1.00 K/uL (1.0-3.4) 11/04/19 13:46 Absolute Monos (auto) 0.60 K/uL (0.2-0.8) 11/04/19 13:46 Absolute Eos (auto) 0.20 K/uL (0.0-0.4) 11/04/19 13:46 Absolute Basos (auto) 0.00 K/uL (0.0-0.1) 11/04/19 13:46 Neutrophils % 76.0 % (42.0-78.0) 11/04/19 13:46 Lymphocytes % 12.9 % (20.0-50.0) L 11/04/19 13:46 Monocytes % 7.8 % (2.0-9.0) 11/04/19 13:46 Eosinophils % 2.7 % (1.0-5.0) 11/04/19 13:46 Basophils % 0.6 % (0.0-2.0) 11/04/19 13:46 ESR 0 mm/hr (0-20) 11/04/19 13:46 Sodium 138 mmol/L (135-145) 11/04/19 13:46 Potassium 4.5 mmol/L (3.6-5.0) 11/04/19 13:46 Chloride 105 mmol/L (101-111) 11/04/19 13:46 Carbon Dioxide 22 mmol/L (21-31) 11/04/19 13:46 Anion Gap 15.5 (12-18) 11/04/19 13:46 BUN 37 mg/dL (7-18) H 11/04/19 13:46 Creatinine 1.76 mg/dL (0.6-1.3) H 11/04/19 13:46 BUN/Creatinine Ratio 21.0 (10-20) H 11/04/19 13:46 Random Glucose 243 mg/dL (70-105) H 11/04/19 13:46 Serum Osmolality 292.4 mOsm/L (275-295) 11/04/19 13:46 Uric Acid 9.7 mg/dL (2.6-7.2) H 11/04/19 13:46 Calcium 8.9 mg/dL (8.4-10.2) 11/04/19 13:46 C-Reactive Protein 0.6 mg/dL (0-1.0) 11/04/19 13:46 - EKG/XRAY/CT XRAY: toe - . No acute fracture or dislocation and the joint spaces are preserved. 2. First proximal phalanx dorsal erosive changes distal aspect with adjacent soft tissue swelling seen only on the lateral view, due to normal labs I do not suspect OM at this time Departure - Departure Clinical Impression: Gout Qualifiers: Gout site: toe Gout etiology: unspecified cause Chronicity: acute Laterality: left Qualified Code(s): M10.9 - Gout, unspecified Time of Disposition: 15:00 Disposition: Discharge to Home or Self Care Condition: Fair Departure Forms: ED Discharge - Pt. Copy, Patient Portal Self Enrollment Instructions: DI for Abrasion, Gout Referrals: KANCHAN SANDERSON MD [Primary Care Provider] - 1-5 Days Home Medications: Ambulatory Orders Glipizide 10 mg PO DAILY 07/14/17 Metoprolol Succinate [Toprol Xl] 25 mg PO BID 07/14/17 Sacubitril-Valsartan [Entresto 49-51 mg] 1 tablet PO BID 07/14/17 Simvastatin 20 mg PO DAILY 07/14/17 Spironolactone [Aldactone] 12.5 mg PO DAILY 07/14/17 Apixaban [Eliquis] 5 mg PO DAILY 03/23/19 Insulin Degludec [Tresiba Flextouch] 14 units SUBCU DAILY 03/23/19 Sitagliptin Phosphate [Januvia] 100 mg PO DAILY 03/23/19
--- NOTE | 2019-11-04 14:01 | RAD ---
EXAM DESCRIPTION: X-ray Toes, left; 3 views CLINICAL HISTORY: 79 years Male, redness, swelling great toe COMPARISON: None. FINDINGS/IMPRESSION: 1. No acute fracture or dislocation and the joint spaces are preserved. 2. First proximal phalanx dorsal erosive changes distal aspect with adjacent soft tissue swelling seen only on the lateral view suspicious for osteomyelitis in the appropriate clinical setting. Electronically signed by: Mendez Rdz MD 11/04/2019 1:59 PM CDT
[2019-11-04 14:17] VITALS: TEMP 96
[2019-11-04 15:25] VITALS: BP 143/80; O2SAT 100
== END 2019-11-04 15:15 | disposition home or self-care (01) ==
LOC: ER 13:06
DX: M10.9 Gout, unspecified (principal); E11.42 Type 2 diabetes mellitus with diabetic polyneuropathy; E11.22 Type 2 diabetes mellitus with diabetic chronic kidney disease; N18.9 Chronic kidney disease, unspecified; I12.9 Hypertensive chronic kidney disease with stage 1 through stage 4 chronic kidney disease, or unspecified chronic kidney disease; I25.10 Atherosclerotic heart disease of native coronary artery without angina pectoris; K21.9 Gastro-esophageal reflux disease without esophagitis; Z95.0 Presence of cardiac pacemaker; Z85.9 Personal history of malignant neoplasm, unspecified; Z87.891 Personal history of nicotine dependence; Z79.899 Other long term (current) drug therapy; Z86.73 Personal history of transient ischemic attack (TIA), and cerebral infarction without residual deficits; Z79.4 Long term (current) use of insulin

== ENCOUNTER → 2019-12-04 | Outpatient (CLI) | payer MEDICARE, BC ==
--- NOTE | 2019-12-04 11:58 | RAD ---
EXAM DESCRIPTION: Foot,Left 3 Views CLINICAL HISTORY: 79 years, Male, GOUT COMPARISON: November 04, 2019 TECHNIQUE: Three views left foot FINDINGS: Three views left foot demonstrate an abnormal proximal phalanx great toe distally now with fracture of the medial distal corner through an area of lucency in the subcortical region of the proximal phalanx just proximal to the interphalangeal joint. Either an erosive process of such as gout with secondary fracture or a destructive process such as osteomyelitis would be considerations. Significant cortical destruction of the articular surface is not apparent possibility of a septic joint although not entirely excluded is thought less likely. Modest degenerative changes at the MTP joint of the great toe also noted without erosive or destructive changes or fracture. Modest degenerative changes involving toes two through five with modest claw toe deformity present. Plantar calcaneal spurring also noted is mild degenerative changes involving the midfoot. IMPRESSION: 1. Interval corner fracture of the medial distal corner of the first proximal phalanx through an area of erosion and lucency consistent with pathologic fracture through an area of gouty erosion or possible osteomyelitis. Significant destruction of the joint space not apparent although the fracture line does involve the articular surface of the proximal phalanx distally. 2. Intact distal phalanx great toe and modest degenerative changes at the MTP joint at the base of the great toe. Electronically signed by: Bull Ryan MD 12/04/2019 11:56 AM CDT
== END ==
LOC: LAB.O 11:01
PROVIDERS: ATTEND Family Medicine
DX: M10.9 Gout, unspecified (principal); S92.492A Other fracture of left great toe, initial encounter for closed fracture; M19.072 Primary osteoarthritis, left ankle and foot; E11.9 Type 2 diabetes mellitus without complications; E78.5 Hyperlipidemia, unspecified; N28.9 Disorder of kidney and ureter, unspecified

== ENCOUNTER → 2019-12-17 | Outpatient (CLI) | payer MEDICARE, BC ==
--- NOTE | 2019-12-17 21:53 | US ---
EXAM DESCRIPTION: Extremity,Lower Nicko Arteries: Ultrasound. CLINICAL HISTORY: PVD COMPARISON: None. TECHNIQUE: Doppler evaluation of the bilateral lower extremity arterial flow waveforms and velocities. FINDINGS: Arterial waveforms in the right lower extremity are multiphasic from the right common femoral artery through the right dorsalis pedis artery.. Arterial waveforms in the left lower extremity are multiphasic from the left common femoral artery, through the left peroneal artery. Distal left MOBILE ENGINEER is monophasic. Left DPA also monophasic.. Comments: Significant decrease in velocity from the left popliteal artery into the left posterior tibial artery. Significant difference in velocity between the left peroneal artery and the left DPA. Increase velocity in the right peroneal artery, at least 3 times greater then the right MOBILE ENGINEER, could indicate early stenosis even with multiphasic flow. IMPRESSION: 1. Doppler ultrasound of the bilateral lower extremity arterial system shows significant atherosclerotic occlusive disease in the left posterior tibial artery and left dorsalis pedis artery. 2. Velocity differential suggesting early stenosis in the right peroneal artery. Consider follow-up bilateral lower extremity CTA.. Electronically signed by: Yohan Burt MD 12/17/2019 9:51 PM [facility]
== END ==
LOC: US 11:00
PROVIDERS: ATTEND Family Medicine
DX: I70.202 Unspecified atherosclerosis of native arteries of extremities, left leg (principal); I77.9 Disorder of arteries and arterioles, unspecified

== ENCOUNTER 2020-01-02 18:53 | Emergency (ER) | payer MEDICARE, BC ==
[2020-01-02] MEDS ORDERED: ONDANSETRON ODT 8 MG TAB SL ONE (19:03)
--- NOTE | 2020-01-02 19:04 | ED.PDOC ---
History of Present Illness - General Chief Complaint: General Time Seen by Provider: 01/02/20 18:57 - History of Present Illness Initial Comments: 79 yo M PMH DM CAD presents to ED c/o fatigue and nausea vomiting but is only interested in getting a covid test so he can travel for the hollidays. Refusing all other testing. Denies fever cough sob recent travel or contact with covid19 denies fever chills admits nausea vomiting denies diarrhea chest pain sob diaphoresis no change in bowel or bladder has PMD for follow up no other c/o today. PPE worn-N95 surgical mask with attached face shield over N95 gloves and face shield over that Allergies/Adverse Reactions: Allergies NO KNOWN ALLERGY Allergy (Verified 07/14/17 02:38) Home Medications: Ambulatory Orders Glipizide 10 mg PO DAILY 07/14/17 Metoprolol Succinate [Toprol Xl] 25 mg PO BID 07/14/17 Sacubitril-Valsartan [Entresto 49-51 mg] 1 tablet PO BID 07/14/17 Simvastatin 20 mg PO DAILY 07/14/17 Apixaban [Eliquis] 5 mg PO DAILY 03/23/19 Insulin Degludec [Tresiba Flextouch] 14 units SUBCU DAILY 03/23/19 Sitagliptin Phosphate [Januvia] 100 mg PO DAILY 03/23/19 Review of Systems - Review of Systems Constitutional: States: see HPI EENTM: States: see HPI Respiratory: States: see HPI Cardiology: States: see HPI Gastrointestinal/Abdominal: States: see HPI Genitourinary: States: see HPI Musculoskeletal: States: see HPI Skin: States: see HPI Neurological: States: see HPI Endocrine: States: see HPI All other Systems: Reviewed and Negative Past Medical History (General) - Patient Medical History Hx Seizures: No Hx Stroke: Yes Hx Dementia: No Hx Asthma: No Hx of COPD: No Hx Cardiac Disorders: Yes Hx Congestive Heart Failure: No Hx Pacemaker: Yes Hx Hypertension: Yes Hx Thyroid Disease: No Hx Diabetes: Yes Hx Gastroesophageal Reflux: Yes Hx Renal Disease: No Hx Cancer: Yes Hx of HIV: No Hx Hepatitis C: No Hx MRSA: No - Vaccination History Hx Tetanus, Diphtheria Vaccination: Yes Hx Influenza Vaccination: No Hx Pneumococcal Vaccination: Yes - Social History Hx Tobacco Use: Yes Hx Chewing Tobacco Use: No Hx Alcohol Use: No Hx Substance Use: No Hx Substance Use Treatment: No Hx Depression: No Hx Physical Abuse: No Hx Emotional Abuse: No Hx Suspected Abuse: No Family Medical History - Family History Mother Living Status: Hx Cardiac Disease: Yes Father Family History: No Known Living Status: Hx Family Asthma: No Hx Family;Other: COPD Physical Exam - Physical Exam General Appearance: No apparent distress Eye Exam: bilateral normal Ears, Nose, Throat: normal ENT inspection Neck: non-tender, full range of motion Respiratory: no respiratory distress Cardiovascular/Chest: regular rate, rhythm Gastrointestinal/Abdominal: non tender, soft Rectal Exam: deferred Back Exam: normal inspection Extremity: normal range of motion, non-tender Neurologic: no motor/sensory deficits Skin Exam: normal color Progress - Progress Progress: 01/02/20 19:21 A/P-Fatigue COVID Counselling-refusing all other testing except covid swab, will sign out against medical advice, rapid covid test 01/02/20 20:31 COVID Negative Departure - Departure Clinical Impression: Counseled about COVID-19 virus infection Fatigue Qualifiers: Fatigue type: unspecified Qualified Code(s): R53.83 - Other fatigue Disposition: Left Against Medical Advice Condition: Fair Departure Forms: ED Discharge - Pt. Copy, Patient Portal Self Enrollment Referrals: KANCHAN SANDERSON MD [Primary Care Provider] - 1-2 Days Home Medications: Ambulatory Orders Glipizide 10 mg PO DAILY 07/14/17 Metoprolol Succinate [Toprol Xl] 25 mg PO BID 07/14/17 Sacubitril-Valsartan [Entresto 49-51 mg] 1 tablet PO BID 07/14/17 Simvastatin 20 mg PO DAILY 07/14/17 Apixaban [Eliquis] 5 mg PO DAILY 03/23/19 Insulin Degludec [Tresiba Flextouch] 14 units SUBCU DAILY 03/23/19 Sitagliptin Phosphate [Januvia] 100 mg PO DAILY 03/23/19
[2020-01-02 19:08] VITALS: TEMP 97.3
[2020-01-02 20:27] VITALS: O2SAT 98
[2020-01-02 20:29] VITALS: BP 128/65
== END 2020-01-02 20:35 | disposition left against medical advice (07) ==
LOC: ER 18:53
DX: R53.83 Other fatigue (principal); R11.2 Nausea with vomiting, unspecified; I51.9 Heart disease, unspecified; I10 Essential (primary) hypertension; E11.9 Type 2 diabetes mellitus without complications; K21.9 Gastro-esophageal reflux disease without esophagitis; Z20.828 Contact with and (suspected) exposure to other viral communicable diseases; Z53.29 Procedure and treatment not carried out because of patient's decision for other reasons; Z85.9 Personal history of malignant neoplasm, unspecified; Z87.891 Personal history of nicotine dependence; Z95.0 Presence of cardiac pacemaker; Z86.73 Personal history of transient ischemic attack (TIA), and cerebral infarction without residual deficits; Z79.899 Other long term (current) drug therapy; Z79.01 Long term (current) use of anticoagulants

== ENCOUNTER → 2020-03-13 | Outpatient (CLI) | payer MEDICARE, BC | LOC: YCFC.O 16:21 | PROVIDERS: ATTEND Family Medicine | DX: Z20.828 Contact with and (suspected) exposure to other viral communicable diseases (principal) ==

== ENCOUNTER 2020-03-14 09:23 | Outpatient (CLI) | payer MEDICARE, BC | END 2020-03-14 12:25 | disposition home health service (06) | LOC: INFRM 09:23 | PROVIDERS: ATTEND Family Medicine | DX: U07.1 COVID-19 (principal); Z23 Encounter for immunization ==

== ENCOUNTER → 2020-04-08 | Outpatient (CLI) | payer MEDICARE, BC ==
--- NOTE | 2020-04-08 16:35 | RAD ---
EXAM DESCRIPTION: Toes,Left CLINICAL HISTORY: 79 years Male, cellullitis of toe COMPARISON: 12/04/2019 Findings: 3 view(s)/radiograph(s) Progressed erosion of the left foot first digit proximal phalanx distally. First digit soft tissue swelling. Similar degenerative changes. No acute fracture is identified. Lisfranc alignment is maintained. No dislocation. IMPRESSION: Progressed erosions of the left foot first digit proximal phalanx which may indicate osteomyelitis in the appropriate clinical setting. Electronically signed by: Gumaro Alonzo MD 04/08/2020 4:34 PM [facility]
== END ==
LOC: YCFC.O 15:40
PROVIDERS: ATTEND Family Medicine
DX: L03.032 Cellulitis of left toe (principal); M89.9 Disorder of bone, unspecified